=== PATIENT | female | born 1995 | race Caucasian/White ===

== ENCOUNTER 2017-06-09 14:56 | Inpatient (IN) ==
[2017-06-09] MEDS ORDERED: Ondansetron 4 MG/2 ML VIAL IVP ONE (15:23)
[2017-06-09] MEDS ORDERED: Ketorolac 15 MG/ML VIAL IVP ONE (15:23)
[2017-06-09] MEDS ORDERED: 0.9 % Sodium Chloride 1,000 ML IVC ONE ×2 (15:23→23:12)
[2017-06-09] MEDS ORDERED: Piperacillin/Tazobactam 3.375 GM in Water for inj. (sterile) 20 ML IVP ONE (15:23)
[2017-06-09] MEDS ORDERED: Acetaminophen 325 MG TABLET PO ONE (15:24)
--- NOTE | 2017-06-09 15:25 | Emergency Department Note ---
Disposition Clinical Impression: Pyelonephritis, Bacteremia, Sepsis Disposition: Admitted As Inpatient Condition: Good Referrals: NONE,PCP [Primary Care Provider] - Forms: Work/School Release, ED Satisfaction Letter General Adult HPI - General Chief complaint: ED Recheck/Abnormal Lab/Rx Stated complaint: (+) Blood Culture x 2 Time Seen by Provider: 06/09/17 15:02 Source: patient Limitations: no limitations Nursing Notes Reviewed: Yes Vital Signs Reviewed: Yes - History of Present Illness Pain Scale: 8 - Related Data Previous Rx's Medication Instructions Recorded Azithromycin [Azithromycin 6-Tab 250 mg PO DAILY #6 tab 04/02/16 Pack] Ibuprofen [Motrin] 400 mg PO Q6-8H PRN #30 tablet 04/02/16 Ondansetron [Zofran] 8 mg PO Q8HR PRN #9 tablet 04/02/16 Promethazine/Dextromethorphan 5 ml PO Q4H PRN #120 ml 04/02/16 [Promethazine-Dm Syrup] Fluticasone Propionate Nasal 16 gm NS BID #1 bottle 06/23/16 [Flonase] Ondansetron ODT [Zofran ODT] 4 mg SL Q6HR PRN #15 tab.rapdis 06/09/17 Sulfamethoxazole/Trimeth DS 1 each PO BID 14 Days tablet 06/09/17 [Bactrim DS] Allergies Allergy/AdvReac Type Severity Reaction Status Date / Time morphine Allergy Hives Verified 02/23/17 21:28 Past Medical History - Past Medical History Medical history: Reports: no medical history Psychiatric history: Reports: no psych history 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 - Social History Smoking Status: Never smoker Smokeless Tobacco Status: No Alcohol use: Reports: none Drug use: Reports: none Physical Exam - General Limitations: no limitations General appearance: alert, in no apparent distress Course Vital Signs Temperature 102.1 F H 06/09/17 14:59 Pulse Rate 128 06/09/17 14:59 Respiratory Rate 18 06/09/17 14:59 Blood Pressure 101/65 06/09/17 14:59 O2 Sat by Pulse Oximetry 99 06/09/17 14:59 Temperature 102.1 F H 06/09/17 14:59 Pulse Rate 128 06/09/17 14:59 Respiratory Rate 18 06/09/17 14:59 Blood Pressure 101/65 06/09/17 14:59 O2 Sat by Pulse Oximetry 99 06/09/17 14:59 Oxygen Delivery Oxygen Delivery Room Air Medical Decision Making - MDM Narrative Medical decision making narrative: This documentation is done with the assistance of Dragon dictation. There may be inaccuracies in apartment community assistant manager or spelling and typographical errors. I examined this patient and my medical decision-making was reviewed with the Resident Physician. I agree with the documented findings, disposition and treatment plan as described except to the extent set forth below. Patient seen and evaluated by Dr. Frausto and myself, agree with his evaluation and management plan, supra-skin the patient's stay. She was here yesterday diagnosed a UTI. She is placed on Bactrim. She has had one dose. They did blood cultures yesterday. Patient was called back because her blood cultures were positive for Escherichia coli today. She does meet SIRS criteria and with an organism sepsis criteria. We will then start her on antibiotics here. Fluids. Something for fever and then admission. She is in agreement with plan. 1600 hrs.: Patient's labs are back. White count is declined. She got medicine for fever and a buttocks are started. Lactate is normal. She has got fluids running. We will admit her to the hospitalist. Hospitalist has come to the ER and agreed to the admission. Impression is pyelonephritis. Patient's admitted at this time in stable condition. Patient's critical care time exclusive separately billable procedures is 30 minutes. - Lab Data Result diagrams: 06/09/17 15:21 06/09/17 15:21 Lab Results 06/09/17 06/09/17 06/09/17 Range/Units 15:21 15:21 15:21 WBC 14.1 H (4.3-11.1) K/mcL RBC 4.18 (3.82-4.97) M/mcL Hgb 11.9 D (11.5-15.4) g/dL Hct 36.3 (35.3-44.9) % MCV 86.8 (83.0-100.0) fL MCH 28.5 (28.0-33.3) pg MCHC 32.8 (31.6-35.5) g/dL RDW 13.9 (11.5-14.5) % Plt Count 229 (140-400) K/mcL MPV 9.9 (9.4-12.4) fL Immature Gran % 0.8 (0-4) % Seg Neutrophils % 86.9 % Lymphocytes % 4.5 % Monocytes % 7.6 % Eosinophils % 0.0 % Basophils % 0.2 % Neutrophils # 12.3 H (1.6-8.9) K/mcL Lymphocytes # 0.6 (0.6-4.6) K/mcL Monocytes # 1.1 (0.0-1.3) K/mcL Eosinophils # 0.0 (0.0-0.6) K/mcL Basophils # 0.0 (0.0-0.2) K/mcL Sodium 135 L (136-145) mEq/L Potassium 3.6 (3.5-5.1) mEq/L Chloride 109 H (98-107) mEq/L Carbon Dioxide 20 L (23-29) mEq/L BUN 11 (6-20) mg/dL Creatinine 0.89 (0.60-1.20) mg/dL Est GFR ( Amer) > 60 (> 60) Est GFR (Non-Af Amer) > 60 (> 60) BUN/Creatinine Ratio 12 (6-26) Glucose 132 H (70-105) mg/dL Calculated Osmolality 281 (280-300) Lactic Acid 1.0 (0.5-2.2) mmol/L Calcium 8.3 L (8.6-10.3) mg/dL
[2017-06-09 15:28] LABS: Basophils % 0.2 %; Hematocrit 36.3 % (35.3-44.9); Immature Granulocytes % 0.8 % (0-4); Lymphocytes # 0.6 K/mcL (0.6-4.6); Lymphocytes % 4.5 %; Mean Corpuscular HGB Conc 32.8 g/dL (31.6-35.5); Mean Corpuscular Hemoglobin 28.5 pg (28.0-33.3); Mean Corpuscular Volume 86.8 fL (83.0-100.0); Mean Platelet Volume 9.9 fL (9.4-12.4); Monocytes # 1.1 K/mcL (0.0-1.3); Monocytes % 7.6 %; Neutrophils # 12.3 K/mcL (1.6-8.9); Platelet Count 229 K/mcL (140-400); Red Blood Count 4.18 M/mcL (3.82-4.97); Red Cell Distribution Width 13.9 % (11.5-14.5); Segmented Neutrophils % 86.9 %
[2017-06-09 15:30] LABS: Hemoglobin 11.9 g/dL (11.5-15.4)
--- NOTE | 2017-06-09 15:34 | Emergency Department Note ---
Disposition Clinical Impression: Pyelonephritis, Bacteremia Sepsis Qualifiers: Sepsis type: sepsis due to unspecified organism Qualified Code(s): A41.9 - Sepsis, unspecified organism Disposition: Admitted As Inpatient Condition: Good Forms: ED Satisfaction Letter, Work/School Release Recheck wound or abnormal lab - General Chief Complaint: ED Recheck/Abnormal Lab/Rx Stated Complaint: (+) Blood Culture x 2 Time Seen by Provider: 06/09/17 15:02 Source: patient Mode of arrival: private vehicle Limitations: no limitations Nursing Notes Reviewed: Yes Vital Signs Reviewed: Yes - History of Present Illness HPI Narrative: 22-year-old female previously healthy presents to the ER due to abnormal lab. Patient reports she has had pain in her back for the last 3 days. She was seen here yesterday and treated for pyelonephritis. Patient was given a dose of Bactrim here went home but did not fill the prescription. Reports she was called today for abnormal results. She states she has had nausea as well as vomiting today. She reports chills at home. She denies any dysuria or hematuria however she does state that she has been able to urinate less. No other complaints. Pt Subjective Complaint: abnormal lab(s) Initial Visit (ago): day(s) Symptoms Since Prior Visit: no new symptoms Context: called for positive culture result Associated symptoms: chills, nausea - Related Data Previous Rx's Medication Instructions Recorded Azithromycin [Azithromycin 6-Tab 250 mg PO DAILY #6 tab 04/02/16 Pack] Ibuprofen [Motrin] 400 mg PO Q6-8H PRN #30 tablet 04/02/16 Ondansetron [Zofran] 8 mg PO Q8HR PRN #9 tablet 04/02/16 Promethazine/Dextromethorphan 5 ml PO Q4H PRN #120 ml 04/02/16 [Promethazine-Dm Syrup] Fluticasone Propionate Nasal 16 gm NS BID #1 bottle 06/23/16 [Flonase] Ondansetron ODT [Zofran ODT] 4 mg SL Q6HR PRN #15 tab.rapdis 06/09/17 Sulfamethoxazole/Trimeth DS 1 each PO BID 14 Days tablet 06/09/17 [Bactrim DS] Allergies Allergy/AdvReac Type Severity Reaction Status Date / Time morphine Allergy Hives Verified 02/23/17 21:28 All systems ED: reviewed and negative except as stated. Constitutional: Reports: chills, weakness Gastrointestinal: Reports: abdominal pain, nausea, vomiting. Denies: diarrhea Genitourinary: Reports: frequency. Denies: dysuria, hematuria Past Medical History - Past Medical History Attestation: Yes The following information was validated with the patient. 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 FREQUENCY TECHNICIAN history - Social History Smoking Status: Never smoker Smokeless Tobacco Status: No Alcohol use: Reports: none Drug use: Reports: none Physical Exam - General Limitations: no limitations General appearance: alert, in no apparent distress - Head Head exam: atraumatic - Eye Eye exam: Present: normal appearance - ENT ENT exam: normal exam - Neck Neck exam: Present: normal inspection - Chest Chest inspection: Present: normal inspection, symmetric chest wall rise - Respiratory Respiratory exam: Present: normal lung sounds bilaterally - Cardiovascular Cardiovascular exam: Present: normal rhythm, tachycardia, normal heart sounds - Abdominal Exam Abdominal exam: Present: soft, tenderness (Moderate bilateral CVA tenderness). Absent: distention, guarding, rigidity - Extremities Exam Extremities exam: Present: normal inspection, full ROM - Expanded Upper Extremity Exam Shoulder exam: Present: normal inspection, full ROM Arm exam: Present: normal inspection, full ROM Elbow exam: Present: normal inspection, full ROM Forearm/Wrist exam: Present: normal inspection, full ROM Hand exam: Present: normal inspection, full ROM - Expanded Lower Extremity Exam Hip/Pelvis exam: Present: normal inspection, full ROM Upper leg exam: Present: normal inspection, full ROM Knee exam: Present: normal inspection, full ROM Lower leg exam: Present: normal inspection, full ROM Ankle exam: Present: normal inspection, full ROM Foot/toe exam: Present: normal inspection, full ROM - Back Exam Back exam: Present: CVA tenderness (R), CVA tenderness (L) - Skin Skin exam: Present: warm Course Course Narrative: Patient seen and examined. Vital signs reviewed. She is febrile and tachycardic. Reviewed her prior labs from yesterday. She has no previous cultures. We will repeat baseline labs here, give IV fluids, pain, antipyretics and nausea medications and admitted for pyelonephritis, sepsis and bacteremia. Vital Signs Temperature 102.1 F H 01/15/18 14:59 Pulse Rate 128 06/09/17 14:59 Respiratory Rate 18 06/09/17 14:59 Blood Pressure 101/65 06/09/17 14:59 O2 Sat by Pulse Oximetry 99 06/09/17 14:59 Temperature 102.1 F H 06/09/17 14:59 Pulse Rate 128 06/09/17 14:59 Respiratory Rate 18 06/09/17 14:59 Blood Pressure 101/65 06/09/17 14:59 O2 Sat by Pulse Oximetry 99 06/09/17 14:59 Oxygen Delivery Oxygen Delivery Room Air Recheck wound or abnormal lab - MDM Narrative Medical decision making narrative: 22-year-old female presents to the ER due to abnormal lab results. She was seen here yesterday and treated for pyelonephritis. She went home and had one dose of antibiotic while here but did not fill the prescription. She was called today for positive blood cultures. She was positive for Escherichia coli 2 cultures. She is noted to be febrile and tachycardic here. Patient given IV fluids, antiemetics, antipyretics and analgesics while in the emergency department. Patient given IV Zosyn. Admitted to the hospitalist service for pyelonephritis, sepsis, bacteremia. - Lab Data Lab results reviewed: Yes I reviewed the patient's lab results. Result diagrams: 06/09/17 15:21 06/09/17 15:21 Lab Results 06/09/17 06/09/17 06/09/17 Range/Units 15:21 15:21 15:21 WBC 14.1 H (4.3-11.1) K/mcL RBC 4.18 (3.82-4.97) M/mcL Hgb 11.9 D (11.5-15.4) g/dL Hct 36.3 (35.3-44.9) % MCV 86.8 (83.0-100.0) fL MCH 28.5 (28.0-33.3) pg MCHC 32.8 (31.6-35.5) g/dL RDW 13.9 (11.5-14.5) % Plt Count 229 (140-400) K/mcL MPV 9.9 (9.4-12.4) fL Immature Gran % 0.8 (0-4) % Seg Neutrophils % 86.9 % Lymphocytes % 4.5 % Monocytes % 7.6 % Eosinophils % 0.0 % Basophils % 0.2 % Neutrophils # 12.3 H (1.6-8.9) K/mcL Lymphocytes # 0.6 (0.6-4.6) K/mcL Monocytes # 1.1 (0.0-1.3) K/mcL Eosinophils # 0.0 (0.0-0.6) K/mcL Basophils # 0.0 (0.0-0.2) K/mcL Sodium 135 L (136-145) mEq/L Potassium 3.6 (3.5-5.1) mEq/L Chloride 109 H (98-107) mEq/L Carbon Dioxide 20 L (23-29) mEq/L BUN 11 (6-20) mg/dL Creatinine 0.89 (0.60-1.20) mg/dL Est GFR ( Amer) > 60 (> 60) Est GFR (Non-Af Amer) > 60 (> 60) BUN/Creatinine Ratio 12 (6-26) Glucose 132 H (70-105) mg/dL Calculated Osmolality 281 (280-300) Lactic Acid 1.0 (0.5-2.2) mmol/L Calcium 8.3 L (8.6-10.3) mg/dL S.B.A.R. - S.B.A.R. Situation: Demographics, MOA Background: Presenting Complaint, Relevant PMH, Meds, & Allergies Assessment: Vital Signs, Course and respsone to treatment, Patient/Family Expectation, Pertinant Lab Results Recommendation: Barrier(s) to disposition, Recommendation based on pending studies, treatments, or consults S.B.A.R. Report Given to: Dr. Van SNatashaB.A.RNatasha Repor Time: 15:58
[2017-06-09 15:51] LABS: BUN/Creatinine Ratio 12 (6-26); Blood Urea Nitrogen 11 mg/dL (6-20); Calcium 8.3 mg/dL (8.6-10.3); Carbon Dioxide 20 mEq/L (23-29); Chloride 109 mEq/L (98-107); Glucose 132 mg/dL (70-105); Osmolality,Calculated 281 (280-300); Potassium 3.6 mEq/L (3.5-5.1); Sodium 135 mEq/L (136-145); eGFR For African Americans > 60 (> 60); eGFR For Non-African Americans > 60 (> 60)
[2017-06-09] MEDS ORDERED: Naloxone 0.4 MG/ML INJ IVP PRN (17:16)
--- NOTE | 2017-06-09 17:35 | Internal Med History&Physical ---
<Sherry Noonan S - Last Filed: 06/09/17 17:26> Date of Encounter: 06/09/17 Time of Encounter: 17:28 Assessment and Plan (1) Pyelonephritis Current visit: Yes Status: Acute Continue Zosyn Urine culture pending Blood cultures reviewed positive for Escherichia coli Temperature 102.1 in the emergency room WBCs 14.1 Aggressive IV fluids Follow-up lab work monitor vital signs (2) Bacteremia Current visit: Yes Status: Acute see above (3) Sepsis Current visit: Yes Status: Acute Aggressive IV hydration Antibiotics quality assurance monitor final Fever control Follow labs lactate 1.0 Qualifiers: Sepsis type: Escherichia coli Qualified Code(s): A41.51 - Sepsis due to Escherichia coli [E. coli] (4) DVT prophylaxis Current visit: Yes Status: Acute Ambulation, SCDs and teds while in bed Internal Medicine - H&P: HPI Chief complaint: fever and low back pain Admitted From: Emergency Dept Plans for Post Hospital Care: Home History of present illness: Ms. Pulido is a 22 year old female who was seen in the ED yesterday and diagnosed with a UTI and sent home on Bactrim with one dose that was given in the ER. She told me she did not fill her prescription because her brother would not stop at the pharmacy. Blood cultures drawn yesterday were positive for escherichia coli today and she was called to come back to the ED. She states she feels pretty well, felt she had a fever with chills but does not have a thermometer. She denies nausea, vomiting, chest pain shortness of breath , dysuria, blood in urine, changes in urinary pattern, or diarrhea. States she has not been eating much but she has been drinking a lot of water. She states she is lightheaded at times with some lower back pain and lower abdominal pain. Lactate 1.0, white count 14.1, temperature 102.1 with heart rate 128. Started on IV fluids and Zosyn in the ER and admitted. Saw the patient at 2A 11 and she verbalized understanding of the plan of care and has no questions at this time. She is in no acute distress but does feel hot and damp. Past Med Surg Social Fam HX - Past Medical History Medical history: no medical history Psychiatric history: no psych history - Past Surgical History Surgical History: non-contributory, - Social History Smoking Status: Former smoker Packs per day: 3 cigs /daily Smokeless Tobacco Status: No Alcohol use: none Drug use: none - Additional Family History Additional family history: Reviewed and Noncontributory to this admission Internal Medicine - H&P: Meds Ondansetron ODT [Zofran ODT] 4 mg SL Q6HR PRN #15 tab.rapdis 06/09/17 [Rx] Sulfamethoxazole/Trimeth DS [Bactrim DS] 1 each PO BID 14 Days tablet 06/09/17 [Rx] 3 Allergy/AdvReac Type Severity Reaction Status Date / Time morphine Allergy Hives Verified 02/23/17 21:28 All Systems PM: A 10-system review of systems was performed and is negative for pertinent findings except as documented above in the HPI. - Constitutional Constitutional: anorexia, chills, excessive sweating, fever(s), malaise - EENT Eyes: no change in vision, no discharge, no pain, no photophobia Ears: no ear discharge, no ear pain, no tinnitus Nose, mouth and throat: no dysphagia, no nasal discharge, no neck pain, no sore throat - Cardiovascular Cardiovascular ROS IM: lightheadedness, no chest pain, no diaphoresis, no dyspnea, no palpitations, no syncope - Respiratory Respiratory: no cough, no dyspnea, no wheezing, no excessive phlegm production - Gastrointestinal Gastrointestinal: abdominal pain, no diarrhea, no hematemesis, no hematochezia, no melena, no nausea, no vomiting - Genitourinary Genitourinary: flank pain, no change in urinary stream, no dysuria, no hematuria - Musculoskeletal Musculoskeletal ROS IM: no numbness, no tingling - Integumentary Integumentary IM: no rash, no unusual bruising - Neurological Neurological ROS: no confusion, no convulsions, no focal weakness, no numbness, no tingling, no tremor(s) - Hematologic/Lymphatic Hematologic/Lymphatic: no easy bruising - Constitutional Vitals: Temp Pulse Resp BP Pulse Ox 102.1 F H 128 16 101/64 99 06/09/17 14:59 06/09/17 14:59 06/09/17 17:03 06/09/17 17:03 06/09/17 14:59 General appearance: Present: A&O X 3, pleasant, no acute distress, answers questions appropriately - Head Head exam: Present: atraumatic, normocephalic Additional comments: missing teeth and dental caries - Eye Eye exam: Present: PERRL, conjuntiva pink, sclera anicteric Pupils: Present: PERRL - Neck Neck exam general surgery: Present: supple, trachea midline. Absent: lymphadenopathy - Respiratory Respiratory exam: Present: CTAB. Absent: accessory muscle use, rales, rhonchi, wheezes - Cardiovascular Cardiovascular exam: Present: RRR, +S1, +S2, tachycardia. Absent: diastolic murmur, gallop, rubs, systolic murmur - GI/Abdominal GI/Abdominal exam: Present: normal bowel sounds, soft, tenderness, no peritoneal signs. Absent: distended Additional comments: lower abdominal discomfort, bladder nondistended, bilateral flank pain - Extremities Exam Extremities exam: Present: warm, radial pulses palpable and symmetrical. Absent : calf tenderness, cyanotic, pedal edema - Neurological Exam Neurological exam: Present: oriented X3, no focal deficits. Absent: pronater drift, facial droop, speech deficit - Skin Skin exam: Present: diaphoretic, intact, warm Internal Med - H&P Results - Labs CBC & Chem 7: 06/09/17 15:21 06/09/17 15:21 <Walker Van P - Last Filed: 06/09/17 18:35> Date of Encounter: 06/09/17 Internal Medicine - H&P: HPI History of present illness: Ms. Pulido is a 22 year old female All Systems PM: A 10-system review of systems was performed and is negative for pertinent findings except as documented above in the HPI. - Constitutional Vitals: Temp Pulse Resp BP Pulse Ox 102.1 F H 128 16 101/64 99 06/09/17 14:59 06/09/17 14:59 06/09/17 17:03 06/09/17 17:03 06/09/17 14:59 Internal Med - H&P Results - Labs CBC & Chem 7: 06/09/17 15:21 06/09/17 15:21 - Attending Attestation I examined this patient and my medical decision-making was reviewed with the Resident Physician/TUMBLER TENDER. I agree with the documented findings, disposition and treatment plan as described except to the extent set forth below. 22/female Came yesterday for urinary tract symptom. Was treated with antibiotics and sent home. Noted that blood cultures were positive for Escherichia coli. Patient was called back from home. Started on IV Zosyn/aggressive fluid therapy. She needs a retroperitoneal ultrasound. If it is a pyelonephritis then duration of antibiotics should be 10-14 days.
[2017-06-09] MEDS: 0.9 % Sodium Chloride 1,000 ML IVC SCH (18:07)
[2017-06-09] MEDS: Acetaminophen 325 MG TABLET PO PRN (22:52)
[2017-06-09] MEDS ORDERED: 0.9 % Sodium Chloride 500 ML IVC ONE (22:59)
[2017-06-10] MEDS: Piperacillin/Tazobactam 3.375 GM/200 ML BAG IVPB SCH ×4 (00:15→23:25)
[2017-06-10] MEDS: 0.9 % Sodium Chloride 1,000 ML IVC SCH (03:18)
[2017-06-10 04:43] LABS: Basophils % 0.3 %; Hematocrit 30.7 % (35.3-44.9); Hemoglobin 9.9 g/dL (11.5-15.4); Immature Granulocytes % 0.8 % (0-4); Lymphocytes # 0.9 K/mcL (0.6-4.6); Lymphocytes % 9.1 %; Mean Corpuscular HGB Conc 32.2 g/dL (31.6-35.5); Mean Corpuscular Hemoglobin 28.5 pg (28.0-33.3); Mean Corpuscular Volume 88.5 fL (83.0-100.0); Monocytes # 0.9 K/mcL (0.0-1.3); Monocytes % 8.8 %; Platelet Count 195 K/mcL (140-400); Red Blood Count 3.47 M/mcL (3.82-4.97); Red Cell Distribution Width 14.4 % (11.5-14.5)
[2017-06-10 04:52] LABS: Prothrombin Time 21.8 Seconds (9.4-12.1)
[2017-06-10 04:55] LABS: Activated Partial Thrombo Time 34.1 Seconds (26.0-36.0)
[2017-06-10 05:00] LABS: BUN/Creatinine Ratio 14 (6-26); Blood Urea Nitrogen 10 mg/dL (6-20); Calcium 7.6 mg/dL (8.6-10.3); Carbon Dioxide 18 mEq/L (23-29); Chloride 115 mEq/L (98-107); Glucose 100 mg/dL (70-105); Magnesium 1.8 mg/dL (1.6-2.6); Osmolality,Calculated 285 (280-300); Potassium 3.8 mEq/L (3.5-5.1); Sodium 138 mEq/L (136-145); eGFR For African Americans > 60 (> 60); eGFR For Non-African Americans > 60 (> 60)
[2017-06-10] MEDS: Ondansetron 4 MG/2 ML VIAL IVP PRN ×2 (07:58→16:12)
[2017-06-10 08:42] LABS: Alanine Aminotransferase 13 Units/L (7-52); Albumin 2.7 g/dL (3.5-5.7); Albumin/Globulin Ratio 1.2 (1.1-2.2); Alkaline Phosphatase 46 Units/L (34-104); Aspartate Amino Transferase 15 Units/L (13-39); Bilirubin,Direct 0.6 mg/dL (0.0-0.2); Bilirubin,Indirect 0.7 mg/dL (0.0-1.2); Bilirubin,Total 1.3 mg/dL (0.3-1.0); Globulin 2.3 g/dL (2.4-3.5)
--- NOTE | 2017-06-10 08:50 | Internal Med Progress Note ---
Date of Encounter: 06/10/17 Time of Encounter: 08:48 - Assessment and plan (1) Severe sepsis Current Visit: Yes Status: Acute Assessment and plan: Presented with fever, tachycardia, leukocytosis and hypotension, responding to IV fluids, secondary to suspected pyelonephritis; continue IV hydration and antibiotics and f/up cultures; lactic acid normal; monitor vitals closely; (2) Pyelonephritis Current Visit: Yes Status: Acute Assessment and plan: Improving. Blood and urine cultures grow E.coli, pending sensitivity; continue IV Zosyn and f/up final cultures. Will change IV fluids to Ring[place] lactate due to hyperchloremic acidosis; supportive care; (3) Bacteremia Current Visit: Yes Status: Acute Assessment and plan: 2 sets of blood cultures grow gram negative rods- E.coli; continue IV Zosyn, f/ up sensitivity and repeat blood cultures today; - Subjective Interval history: Feels better but had fever spikes overnight; reports nausea, vomiting, back pain ; no abdominal pain, chest pain, dyspnea, leg swelling; - Constitutional Vitals: Temp Pulse Resp BP Pulse Ox 100.7 F H 103 16 105/65 97 06/10/17 08:17 06/10/17 08:17 06/10/17 08:17 06/10/17 08:17 06/10/17 08:17 General appearance: Present: A&O X 3, answers questions appropriately - Respiratory Respiratory exam: Present: CTAB. Absent: accessory muscle use, rales, rhonchi, wheezes - Cardiovascular Cardiovascular exam: Present: RRR, +S1, +S2. Absent: diastolic murmur, gallop, rubs, systolic murmur - GI/Abdominal GI/Abdominal exam: Present: normal bowel sounds, soft (mild suprapubic tenderness), no peritoneal signs. Absent: distended, tenderness - Extremities Exam Extremities exam: Present: full ROM, warm, radial pulses palpable and symmetrical. Absent: calf tenderness, cyanotic, pedal edema - Back Exam Back exam: Present: CVA tenderness (L), CVA tenderness (R) - Neurological Exam Neurological exam: Present: CN II-XII intact, oriented X3, no focal deficits. Absent: pronater drift, facial droop, speech deficit - Skin Skin exam: Present: dry, intact Internal Medicine: Result - Labs CBC & Chem 7: 06/10/17 04:03 06/10/17 04:03 Labs: Short CBC 06/10/17 Range/Units 04:03 WBC 9.9 (4.3-11.1) K/mcL Hgb 9.9 L D (11.5-15.4) g/dL Hct 30.7 L (35.3-44.9) % Plt Count 195 (140-400) K/mcL Neutrophils # 8.0 (1.6-8.9) K/mcL BMP 06/10/17 04:03 Sodium 138 Potassium 3.8 Chloride 115 H Carbon Dioxide 18 L BUN 10 Creatinine 0.70 Glucose 100 Calcium 7.6 L Liver Function 06/10/17 Range/Units 04:03 Total Bilirubin 1.3 H (0.3-1.0) mg/dL Direct Bilirubin 0.6 H (0.0-0.2) mg/dL AST 15 (13-39) Units/L ALT 13 (7-52) Units/L Alkaline Phosphatase 46 (34-104) Units/L Albumin 2.7 L (3.5-5.7) g/dL - ABG Interpretation ABG results: PT/INR, D-dimer PT 21.8 Seconds (9.4-12.1) H 06/10/17 04:03 Consult Discharge Plan - Plan Referrals: NONE,PCP [Primary Care Provider] -
[2017-06-10] MEDS: Ringers Solution, Lactated 1,000 ML IVC SCH ×2 (09:49→21:37)
[2017-06-10] MEDS: Acetaminophen 325 MG TABLET PO PRN ×2 (09:49→16:08)
[2017-06-10 20:06] LABS: Bilirubin,Urine Negative (Negative); Blood,Urine Moderate (Negative); Clarity,Urine Cloudy (Clear); Color,Urine Yellow (Yellow); Glucose,Urine (UA) Normal (Normal); Ketones,Urine Negative (Negative); Leukocyte Esterase,Urine Small (Negative); Nitrite,Urine Negative (Negative); Protein,Urine Trace mg/dL (Neg-Trace); Specific Gravity,Urine 1.008 (1.010-1.025)
[2017-06-10 20:07] LABS: Bacteria,Urine None Seen per hpf (None-Few); Hyaline Casts,Urine None Seen per lpf (None-Few); RBC,Urine 15-30 per hpf (0-3); Squamous Epithelial Cell,Urine Many per lpf (None-Few); WBC,Urine 15-30 per hpf (0-3)
[2017-06-11] MEDS: Ondansetron 4 MG/2 ML VIAL IVP PRN ×3 (00:22→20:18)
[2017-06-11 04:29] LABS: Basophils % 0.2 %; Eosinophils % 0.2 %; Hematocrit 30.8 % (35.3-44.9); Hemoglobin 10.4 g/dL (11.5-15.4); Immature Granulocytes % 0.7 % (0-4); Lymphocytes # 1.3 K/mcL (0.6-4.6); Lymphocytes % 15.4 %; Mean Corpuscular HGB Conc 33.8 g/dL (31.6-35.5); Mean Corpuscular Volume 85.8 fL (83.0-100.0); Mean Platelet Volume 10.7 fL (9.4-12.4); Monocytes % 11.6 %; Neutrophils # 6.3 K/mcL (1.6-8.9); Platelet Count 222 K/mcL (140-400); Red Blood Count 3.59 M/mcL (3.82-4.97); Red Cell Distribution Width 14.6 % (11.5-14.5); Segmented Neutrophils % 71.9 %
[2017-06-11 04:35] LABS: INR 1.6; Prothrombin Time 17.8 Seconds (9.4-12.1)
[2017-06-11 04:48] LABS: BUN/Creatinine Ratio 15 (6-26); Blood Urea Nitrogen 9 mg/dL (6-20); Carbon Dioxide 20 mEq/L (23-29); Chloride 112 mEq/L (98-107); Glucose 104 mg/dL (70-105); Osmolality,Calculated 283 (280-300); Potassium 3.6 mEq/L (3.5-5.1); Sodium 137 mEq/L (136-145); eGFR For African Americans > 60 (> 60); eGFR For Non-African Americans > 60 (> 60)
--- NOTE | 2017-06-11 07:42 | Internal Med Progress Note ---
Date of Encounter: 06/11/17 Time of Encounter: 07:39 - Assessment and plan (1) Pyelonephritis Current Visit: Yes Status: Acute Assessment and plan: Improving. Blood and urine cultures grow E.coli, will change antibiotics to Levaquin today. Follow up on repeat blood cultures. Blood cultures remain negative she will end up leaving on 2 weeks of antibiotics. Continue with pain control. Continue with IV fluids. (2) Bacteremia Current Visit: Yes Status: Acute Assessment and plan: 2 sets of blood cultures grow E.coli; continue IV fluids. Follow up repeat blood cultures. (3) Severe sepsis Current Visit: Yes Status: Acute Assessment and plan: Presented with fever, tachycardia, leukocytosis and hypotension, responding to IV fluids, secondary to suspected pyelonephritis; continue IV hydration and antibiotics and f/up cultures; lactic acid normal; monitor vitals closely; (4) DVT prophylaxis Current Visit: Yes Status: Acute Assessment and plan: SCDs - Subjective Interval history: Patient was seen and examined. She continues to complain of back pain. She has no urinary symptoms. She has been afebrile. She is tolerating diet. Nausea is better. - Constitutional Vitals: Temp Pulse Resp BP Pulse Ox 98.3 F 75 16 117/72 95 06/11/17 06:59 06/11/17 06:59 06/11/17 06:59 06/11/17 06:59 06/11/17 06:59 General appearance: Present: A&O X 3, answers questions appropriately Exam: GEN: NAD CVS: RRR. S1, S2, No m/r/g RESP: CTAB ABD: Soft, NT, ND, +BS EXT: No edema. 2+ DP. No rashes NEURO: Nonfocal Internal Medicine: Result - Labs CBC & Chem 7: 06/11/17 04:13 06/11/17 04:13 Labs: Short CBC 06/11/17 Range/Units 04:13 WBC 8.7 (4.3-11.1) K/mcL Hgb 10.4 L (11.5-15.4) g/dL Hct 30.8 L (35.3-44.9) % Plt Count 222 (140-400) K/mcL Neutrophils # 6.3 (1.6-8.9) K/mcL BMP 06/10/17 06/11/17 04:03 04:13 Sodium 138 137 Potassium 3.8 3.6 Chloride 115 H 112 H Carbon Dioxide 18 L 20 L BUN 10 9 Creatinine 0.70 0.60 Glucose 100 104 Calcium 7.6 L 8.0 L Liver Function 06/10/17 Range/Units 04:03 Total Bilirubin 1.3 H (0.3-1.0) mg/dL Direct Bilirubin 0.6 H (0.0-0.2) mg/dL AST 15 (13-39) Units/L ALT 13 (7-52) Units/L Alkaline Phosphatase 46 (34-104) Units/L Albumin 2.7 L (3.5-5.7) g/dL Urine 06/10/17 Range/Units 19:59 Urine Color Yellow (Yellow) Urine Clarity Cloudy A (Clear) Urine pH 7.0 (5.0-8.0) pH Units Ur Specific [place] 1.008 L (1.010-1.025) Urine Protein Trace (Neg-Trace) mg/dL Urine Glucose (UA) Normal (Normal) mg/dL - ABG Interpretation ABG results: PT/INR, D-dimer PT 17.8 Seconds (9.4-12.1) H 06/11/17 04:13 Consult Discharge Plan - Plan Referrals: NONE,PCP [Primary Care Provider] -
[2017-06-11] MEDS: Levofloxacin 500 MG/100 ML 500 MG/100 ML BAG IVPB SCH (08:39)
[2017-06-11] MEDS: Acetaminophen 325 MG TABLET PO PRN ×2 (08:39→21:56)
[2017-06-11] MEDS: Ringers Solution, Lactated 1,000 ML IVC SCH ×2 (08:40→20:14)
[2017-06-12 05:49] LABS: Basophils % 0.6 %; Eosinophils # 0.1 K/mcL (0.0-0.6); Eosinophils % 1.6 %; Hematocrit 32.8 % (35.3-44.9); Immature Granulocytes % 0.6 % (0-4); Lymphocytes # 1.9 K/mcL (0.6-4.6); Lymphocytes % 28.8 %; Mean Corpuscular HGB Conc 33.5 g/dL (31.6-35.5); Mean Corpuscular Hemoglobin 28.6 pg (28.0-33.3); Mean Corpuscular Volume 85.4 fL (83.0-100.0); Monocytes % 14.5 %; Neutrophils # 3.6 K/mcL (1.6-8.9); Platelet Count 270 K/mcL (140-400); Red Blood Count 3.84 M/mcL (3.82-4.97); Segmented Neutrophils % 53.9 %
[2017-06-12 06:16] LABS: BUN/Creatinine Ratio 12 (6-26); Blood Urea Nitrogen 7 mg/dL (6-20); Calcium 8.4 mg/dL (8.6-10.3); Carbon Dioxide 23 mEq/L (23-29); Chloride 110 mEq/L (98-107); Glucose 91 mg/dL (70-105); Magnesium 1.6 mg/dL (1.6-2.6); Osmolality,Calculated 286 (280-300); Potassium 3.6 mEq/L (3.5-5.1); Sodium 139 mEq/L (136-145); eGFR For African Americans > 60 (> 60); eGFR For Non-African Americans > 60 (> 60)
[2017-06-12] MEDS: Ringers Solution, Lactated 1,000 ML IVC SCH (06:43)
[2017-06-12] MEDS: Levofloxacin 500 MG/100 ML 500 MG/100 ML BAG IVPB SCH (08:41)
--- NOTE | 2017-06-12 11:02 | Discharge Summary ---
Date of Encounter: 06/12/17 Time of Encounter: 11:00 - Discharge Diagnosis (1) Pyelonephritis Priority: Primary Status: Acute (2) Bacteremia Priority: Primary Status: Acute (3) Severe sepsis Priority: Primary Status: Acute - Discharge Medications Prescriptions: levoFLOXacin [Levaquin] 500 mg PO DAILY #12 tablet Home Medications: Ondansetron ODT [Zofran ODT] 4 mg SL Q6HR PRN #15 tab.rapdis 06/09/17 [Rx] levoFLOXacin [Levaquin] 500 mg PO DAILY #12 tablet 06/12/17 [Rx] Allergies/Adverse Reactions: 3 Allergy/AdvReac Type Severity Reaction Status Date / Time morphine Allergy Hives Verified 02/23/17 21:28 Date of admission: 06/09/17 17:38 Primary care physician: PCP NONE - Patient Status Disposition: Home, Self-Care Condition: Fair Overall status at discharge: patient is back to baseline - Discharge Instructions Instructions: Urinary Tract Infection in Women (DC) Follow Up With: Sergio Rios DO [Resident] - 07/10/17 2:00 pm (At [facility] You will receive new patient packet in the mail with directions to the office. Please fill out health questionaire enclosed in the packet and bring with you to your appt.) NONE,PCP [Primary Care Provider] - - Diet and Activity Activity: increase activity as tolerated Diet: regular diet Hospital course: Ms. Pulido is a 22 year old female who was seen in the ED prior to admission and diagnosed with a UTI and sent home on Bactrim with one dose that was given in the ER. Blood cultures drawn were positive for escherichia coli today and she was called to come back to the ED. Lactate 1.0, white count 14.1, temperature 102.1 with heart rate 128. Started on IV fluids and Zosyn in the ER and admitted. Her repeat blood cultures remained negative 48 hours. Wind up discharging patient on 2 weeks of Levaquin to finish treatment for Escherichia coli UTI and bacteremia. She was stable for discharge on 06/12/2017 - Time Spent with Patient Total time spent providing and/or coordinating discharge services: Greater than 30 minutes - Constitutional Vitals: Temp Pulse Resp BP Pulse Ox 99.1 F 74 12 115/82 99 06/12/17 07:02 06/12/17 07:02 06/12/17 07:02 06/12/17 07:02 06/12/17 07:02 General appearance: Present: A&O X 3, answers questions appropriately Exam: GEN: NAD CVS: RRR. S1, S2, No m/r/g RESP: CTAB ABD: Soft, NT, ND, +BS EXT: No edema. 2+ DP. No rashes NEURO: Nonfocal - VTE Documentation of Mechanical Device: Intermittent pneumatic compression device
[2017-06-12 11:10] VITALS: BP 102/66
[2017-06-12] MEDS ORDERED: FLUARIX QUAD 2017-18 36MOS UP/PF 0.5 ML SYRINGE IM ONE (11:54)
== END 2017-06-12 12:57 | disposition home or self-care (01) | DRG 720 ==
LOC: EMEROO 14:56 → 2ANU 14:56
PROVIDERS: ADMIT Internal Medicine; ATTEND Internal Medicine